=== PATIENT | male | born 1950 | race Caucasian/White ===

== ENCOUNTER 2020-02-07 10:30 | Emergency (ER) | payer MEDICARE, OTHER ==
[2020-02-07] MEDS ORDERED: Sodium Chloride 0.9% 1,000 ML IV SCH ×2 (12:45→14:30)
--- NOTE | 2020-02-07 12:49 | CR ---
CHEST: Portable 02/07/2020 at 12:11 PM CLINICAL HISTORY:Fever, SOB COMPARISON:None FINDINGS: The heart is mildly enlarged. Pulmonary vascularity is normal. No infiltrate effusion or pneumothorax is seen. There are atherosclerotic changes in the aorta. There is some air in the epigastric region which may be a portion of transverse colon or possibly a hiatal hernia. There are no effusions Impression: No acute cardiopulmonary process
[2020-02-07] MEDS ORDERED: Levofloxacin/Dextrose 5%-Water 750 MG in Premix Bag 1 BAG IV ONE (13:28)
--- NOTE | 2020-02-07 13:35 | EDM.PDOC ---
ED HPI GENERAL MEDICAL PROBLEM - General Chief Complaint: Respiratory Problem Stated Complaint: CODID 19? Time Seen by Provider: 02/07/20 11:20 Source of Information: Reports: Patient History Limitations: Reports: No Limitations - History of Present Illness INITIAL COMMENTS - FREE TEXT/NARRATIVE: PT HAD A FEVER LAST NITE. AND WAS SOB. Onset: Gradual, Other ( STARTED IN THE NITE. ) Duration: Hour(s): Location: Reports: Chest, Other (PT HAD PAIN IN THE LEFT CVA AREA, ) Quality: Reports: Sharp Associated Symptoms: Reports: Chest Pain, Cough, Weakness Generalized Pain Score (Numeric/FACES): 6 - Related Data Allergies Allergy/AdvReac Type Severity Reaction Status Date / Time cephalexin [From Keflex] Allergy Other Verified 02/07/20 11:19 Penicillins AdvReac Vomiting Verified 02/07/20 11:19 Home Meds: Home Meds Aspirin 162 tab PO BID 02/07/20 [History] Pramipexole [Mirapex] 0 mg PO BEDTIME 02/07/20 [History] Tamsulosin [Tamsulosin 24 Hr] 0.8 mg PO DAILY 02/07/20 [History] Venlafaxine HCl [Venlafaxine ER] 0 mg PO DAILY 02/07/20 [History] atenoloL [Atenolol] 0 mg PO BID 02/07/20 [History] buPROPion HCL [buPROPion HCl ER] 300 mg PO DAILY 02/07/20 [History] Past Medical History HEENT History: Reports: Impaired Vision Cardiovascular History: Reports: Arrhythmia Respiratory History: Reports: Sleep Apnea, Other (See Below) Other Respiratory History: uses cpap Musculoskeletal History: Reports: Fracture Neurological History: Reports: Vertigo Psychiatric History: Reports: Depression - Past Surgical History GI Surgical History: Reports: Cholecystectomy, Colonoscopy, EGD Musculoskeletal Surgical History: Reports: Arthroscopic Knee, Other (See Below) Other Musculoskeletal Surgeries/Procedures:: many sugeries on hand d/t catching it in an auger. Social & Family History - Tobacco Use Smoking Status *Q: Never Smoker - Caffeine Use Caffeine Use: Reports: Coffee, Soda - Recreational Drug Use Recreational Drug Use: No ED ROS GENERAL - Review of Systems Review Of Systems: See Below Constitutional: Reports: Fever, Chills, Other (PT HAS HAD RIGORS AND SHAKING CHILLS FOR 2 NITES PRIOR TO ARRIVAL. ) HEENT: Reports: No Symptoms Respiratory: Reports: Shortness of Breath, Other (PAIN IN THE LEFT CHEST WITH DEEP BREATHING ALSO PAIN IN HER BACK. ) Cardiovascular: Reports: No Symptoms Endocrine: Reports: No Symptoms GI/Abdominal: Reports: No Symptoms Musculoskeletal: Reports: Other (PAIN IN THE RT CHEST. ) Skin: Reports: No Symptoms ED EXAM, GENERAL - Physical Exam Exam: See Below Free Text/Narrative:: PT ARRIVED WITH PAIN IN THE RT CHEST WITH DEEP BREATHING. B Exam Limited By: No Limitations General Appearance: Alert, No Apparent Distress, Anxious Ears: Normal TMs Nose: Normal Inspection Throat/Mouth: Normal Inspection Head: Atraumatic Neck: Normal Inspection Respiratory/Chest: Other (MILD SOB. ) Cardiovascular: Regular Rate, Rhythm GI/Abdominal: Soft, Non-Tender (Male) Exam: Deferred Rectal (Males) Exam: Deferred Back Exam: Normal Inspection Extremities: Normal Inspection Neurological: Alert, Oriented, Normal Cognition Psychiatric: Anxious Course - Vital Signs Last Recorded V/S: Last Vital Signs Temp 36.7 C 02/07/20 15:41 Pulse 69 02/07/20 15:41 Resp 16 02/07/20 13:21 BP 133/46 L 02/07/20 15:41 Pulse Ox 97 02/07/20 15:41 - Orders/Labs/Meds Orders: Active Orders 24 hr Category Date Time Status CULTURE BLOOD [BC] Urgent Lab 02/07/20 13:10 Received CULTURE BLOOD [BC] Urgent Lab 02/07/20 13:18 Received CULTURE URINE [RM] Stat Lab 02/07/20 12:19 Received Blood Culture x2 Reflex Set [OM.PC] Urgent Oth 02/07/20 12:46 Ordered Labs: Laboratory Tests 02/07/20 02/07/20 02/07/20 Range/Units 11:36 11:50 11:50 WBC 15.5 H (4.5-11.0) K/uL RBC 4.63 (4.30-5.90) M/uL Hgb 13.9 (12.0-15.0) g/dL Hct 42.0 (40.0-54.0) % MCV 91 (80-98) fL MCH 30 (27-31) pg MCHC 33 (32-36) % Plt Count 228 (150-400) K/uL Neut % (Auto) 80 H (36-66) % Lymph % (Auto) 7 L (24-44) % [place] % (Auto) 13 H (2-6) % Eos % (Auto) 0 L (2-4) % Baso % (Auto) 0 (0-1) % Sodium 136 L (140-148) mmol/L Potassium 4.4 (3.6-5.2) mmol/L Chloride 101 (100-108) mmol/L Carbon Dioxide 27 (21-32) mmol/L Anion Gap 12.4 (5.0-14.0) mmol/L BUN 13 (7-18) mg/dL Creatinine 1.2 (0.8-1.3) mg/dL Est Cr Clr Drug Dosing 59.99 mL/min Estimated GFR (MDRD) > 60 (>60) Glucose 121 H (74-106) mg/dL Lactic Acid (0.4-2.0) mmol/L Calcium 8.9 (8.5-10.1) mg/dL Total Bilirubin 0.9 (0.2-1.0) mg/dL AST 25 (15-37) U/L ALT 47 (12-78) U/L Alkaline Phosphatase 92 (46-116) U/L Total Protein 7.4 (6.4-8.2) g/dL Albumin 3.1 L (3.4-5.0) g/dL Globulin 4.3 H (2.3-3.5) g/dL Albumin/Globulin Ratio 0.7 L (1.2-2.2) Urine Color Yellow (YELLOW) Urine Appearance Turbid A (CLEAR) Urine pH 6.0 (5.0-8.0) Ur Specific [place] 1.025 (1.008-1.030) Urine Protein 30 H (NEGATIVE) mg/dL Urine Glucose (UA) Negative (NEGATIVE) mg/dL Urine Ketones Negative (NEGATIVE) mg/dL Urine Occult Blood Large H (NEGATIVE) Urine Nitrite Negative (NEGATIVE) Urine Bilirubin Negative (NEGATIVE) Urine Urobilinogen 0.2 (0.2-1.0) EU/dL Ur Leukocyte Esterase Small H (NEGATIVE) Urine RBC 20-30 H (0-5) Urine WBC 40-50 H (0-5) Ur Epithelial Cells Not seen Amorphous Sediment Not seen Urine Bacteria Many Urine Mucus Not seen SARS-CoV-2 RNA (LYRIC) (NEGATIVE) 02/07/20 02/07/20 Range/Units 12:44 13:35 WBC (4.5-11.0) K/uL RBC (4.30-5.90) M/uL Hgb (12.0-15.0) g/dL Hct (40.0-54.0) % MCV (80-98) fL MCH (27-31) pg MCHC (32-36) % Plt Count (150-400) K/uL Neut % (Auto) (36-66) % Lymph % (Auto) (24-44) % [place] % (Auto) (2-6) % Eos % (Auto) (2-4) % Baso % (Auto) (0-1) % Sodium (140-148) mmol/L Potassium (3.6-5.2) mmol/L Chloride (100-108) mmol/L Carbon Dioxide (21-32) mmol/L Anion Gap (5.0-14.0) mmol/L BUN (7-18) mg/dL Creatinine (0.8-1.3) mg/dL Est Cr Clr Drug Dosing mL/min Estimated GFR (MDRD) (>60) Glucose (74-106) mg/dL Lactic Acid 1.3 (0.4-2.0) mmol/L Calcium (8.5-10.1) mg/dL Total Bilirubin (0.2-1.0) mg/dL AST (15-37) U/L ALT (12-78) U/L Alkaline Phosphatase (46-116) U/L Total Protein (6.4-8.2) g/dL Albumin (3.4-5.0) g/dL Globulin (2.3-3.5) g/dL Albumin/Globulin Ratio (1.2-2.2) Urine Color (YELLOW) Urine Appearance (CLEAR) Urine pH (5.0-8.0) Ur Specific [place] (1.008-1.030) Urine Protein (NEGATIVE) mg/dL Urine Glucose (UA) (NEGATIVE) mg/dL Urine Ketones (NEGATIVE) mg/dL Urine Occult Blood (NEGATIVE) Urine Nitrite (NEGATIVE) Urine Bilirubin (NEGATIVE) Urine Urobilinogen (0.2-1.0) EU/dL Ur Leukocyte Esterase (NEGATIVE) Urine RBC (0-5) Urine WBC (0-5) Ur Epithelial Cells Amorphous Sediment Urine Bacteria Urine Mucus SARS-CoV-2 RNA (LYRIC) Negative (NEGATIVE) Meds: Medications Discontinued Medications Generic Name Dose Route Start Last Admin Trade Name Macy PRN Reason Stop Dose Admin Sodium Chloride 1,000 mls @ 999 mls/hr 02/07/20 12:45 02/07/20 13:19 Normal Saline IV 999 mls/hr ASDIRECTED BRENDEN Administration Levofloxacin/Dextrose 750 mg/ 150 mls @ 100 mls/hr 02/07/20 13:28 02/07/20 14:17 Premix IV 02/07/20 14:57 100 mls/hr ONETIME ONE Administration Sodium Chloride 1,000 mls @ 999 mls/hr 02/07/20 14:30 02/07/20 15:41 Normal Saline IV 999 mls/hr ASDIRECTED BRENDEN Administration - Re-Assessments/Exams Free Text/Narrative Re-Assessment/Exam: PT HAS A URINE WHICH LOOKS VERY INFECTED. tHIS WAS CULTURED AND BLOOD CULTURES WERE DRAWN. lACTIC ACID IS NORMAL.pT WAS COVID NEG. hE HAS A WBC OF 15,000. PT WAS GIVEN LEVOQUIN 750 MG IV. 02/07/20 14:33 02/07/20 15:01 PT IS FEELING BETTER . hIS TEMP IS STAYING DOWN. hE IS HUNGREY AND IS WANTING TO EAT. Departure - Departure Time of Disposition: 14:00 Disposition: Home, Self-Care 01 Condition: Fair Clinical Impression: Dehydration, Kidney infection - Discharge Information Instructions: Pyelonephritis, Adult, [id number], Dehydration, Adult, [id number] Referrals: PCP,None [Primary Care Provider] - Forms: ED Department Discharge Care Plan Goals: APPT WITH USUAL pROVIDER IN 1 WEEK . RTC IF NOT IMPROVING. CIPRO 500MG BID TYLENOL AND MOTRIN FOR ANY FEVER, PUSH FLUIDS. Sepsis Event Note (ED) - Evaluation Sepsis Screening Result: No Definite Risk - My Orders Last 24 Hours: My Active Orders 02/07/20 12:19 CULTURE URINE [RM] Stat 02/07/20 12:46 Blood Culture x2 Reflex Set [OM.PC] Urgent 02/07/20 13:10 CULTURE BLOOD [BC] Urgent 02/07/20 13:18 CULTURE BLOOD [BC] Urgent - Assessment/Plan Last 24 Hours: My Active Orders 02/07/20 12:19 CULTURE URINE [RM] Stat 02/07/20 12:46 Blood Culture x2 Reflex Set [OM.PC] Urgent 02/07/20 13:10 CULTURE BLOOD [BC] Urgent 02/07/20 13:18 CULTURE BLOOD [BC] Urgent
== END 2020-02-07 16:52 | disposition home or self-care (01) ==
LOC: JP.ED 10:30
DX: N15.9 Renal tubulo-interstitial disease, unspecified (principal); E86.0 Dehydration; F32.9 Major depressive disorder, single episode, unspecified; Z88.1 Allergy status to other antibiotic agents; Z88.0 Allergy status to penicillin; Z79.82 Long term (current) use of aspirin; Z79.899 Other long term (current) drug therapy; Z20.828 Contact with and (suspected) exposure to other viral communicable diseases
CPT/HCPCS: 36415; 71045; 80053; 81001; 83605; 85025; 87040; 87086; 87088; 87186; 87635; 96361; 96365; 99285; J1956; J7030; U0002

== ENCOUNTER 2020-02-08 17:24 | Inpatient (IN) | payer OTHER, MEDICARE ==
[2020-02-08] MEDS ORDERED: Sodium Chloride 0.9% 1,000 ML IV SCH (17:45)
--- NOTE | 2020-02-08 18:04 | EDM.PDOC ---
ED HPI GENERAL MEDICAL PROBLEM - General Chief Complaint: General Stated Complaint: MEDICAL Time Seen by Provider: 02/08/20 18:00 Source of Information: Reports: Patient History Limitations: Reports: No Limitations - History of Present Illness INITIAL COMMENTS - FREE TEXT/NARRATIVE: pt arrived with pain in the rt abdoman. He had cva pain yesterday. He was found to have infected urine yesterday. He did receive levoquin yesterday iv and he spiked a temp to 105 this afternoon. Onset: Sudden Location: Reports: Abdomen, Other (pain in rt lower abdoman) Associated Symptoms: Reports: Diaphoresis, Fever/Chills - Related Data Allergies Allergy/AdvReac Type Severity Reaction Status Date / Time cephalexin [From Keflex] Allergy Other Verified 02/07/20 11:19 Penicillins AdvReac Vomiting Verified 02/07/20 11:19 Home Meds: Home Meds Aspirin 162 tab PO BID 02/07/20 [History] Pramipexole [Mirapex] 0.125 mg PO BEDTIME 02/07/20 [History] Tamsulosin [Tamsulosin 24 Hr] 0.8 mg PO DAILY 02/07/20 [History] Venlafaxine HCl [Venlafaxine ER] 150 mg PO DAILY 02/07/20 [History] atenoloL [Atenolol] 25 mg PO BID 02/07/20 [History] buPROPion HCL [buPROPion HCl ER] 300 mg PO DAILY 02/07/20 [History] Ciprofloxacin [Ciprofloxacin HCl] 500 mg PO BID 02/08/20 [History] Past Medical History HEENT History: Reports: Impaired Vision Cardiovascular History: Reports: Arrhythmia Respiratory History: Reports: Sleep Apnea, Other (See Below) Other Respiratory History: uses cpap Musculoskeletal History: Reports: Fracture Neurological History: Reports: Vertigo Psychiatric History: Reports: Depression - Past Surgical History GI Surgical History: Reports: Cholecystectomy, Colonoscopy, EGD Musculoskeletal Surgical History: Reports: Arthroscopic Knee, Other (See Below) Other Musculoskeletal Surgeries/Procedures:: many sugeries on hand d/t catching it in an auger. Social & Family History - Tobacco Use Tobacco Use Status *Q: Never Tobacco User - Caffeine Use Caffeine Use: Reports: Coffee, Soda - Recreational Drug Use Recreational Drug Use: No ED ROS GENERAL - Review of Systems Review Of Systems: See Below Constitutional: Reports: Fever, Chills, Weakness HEENT: Reports: No Symptoms Respiratory: Reports: No Symptoms Cardiovascular: Reports: No Symptoms Endocrine: Reports: No Symptoms GI/Abdominal: Reports: Abdominal Pain, Other ( rt sided pain. ) : Reports: No Symptoms Musculoskeletal: Reports: No Symptoms Skin: Reports: No Symptoms Neurological: Reports: No Symptoms Psychiatric: Reports: Anxiety ED EXAM, GENERAL - Physical Exam Exam: See Below Free Text/Narrative:: pt arrivedwith pain in the rt lower abdoman. Pt has urine which looks better. His wbc was better. Exam Limited By: No Limitations General Appearance: Alert, Anxious, Moderate Distress Ears: Normal TMs Nose: Normal Inspection Throat/Mouth: Normal Inspection Head: Atraumatic Neck: Normal Inspection Respiratory/Chest: No Respiratory Distress Cardiovascular: Regular Rate, Rhythm GI/Abdominal: Soft, Other ( tender in the rt lower abdoman. He does not have blood in the urine. ) (Male) Exam: Deferred Rectal (Males) Exam: Deferred Back Exam: Normal Inspection Extremities: Normal Inspection Neurological: Alert, Oriented, Normal Cognition Psychiatric: Anxious Course - Vital Signs Last Recorded V/S: Last Vital Signs Temp 37.4 C 02/08/20 17:50 Pulse 66 02/08/20 17:50 Resp 16 02/08/20 17:50 BP 143/58 H 02/08/20 17:50 Pulse Ox 96 02/08/20 17:50 - Orders/Labs/Meds Orders: Active Orders 24 hr Category Date Time Status Abdomen Pelvis wo Cont [CT] Stat Exams 02/08/20 18:13 Ordered CULTURE BLOOD [BC] Urgent Lab 02/08/20 18:10 Received CULTURE BLOOD [BC] Urgent Lab 02/08/20 18:20 Received LACTIC ACID [CHEM] Stat Lab 02/08/20 17:40 Ordered Sodium Chloride 0.9% [Normal Saline] 1,000 ml Med 02/08/20 17:45 Active IV ASDIRECTED Blood Culture x2 Reflex Set [OM.PC] Urgent Oth 02/08/20 17:58 Ordered Medication Orders Sodium Chloride (Normal Saline) 1,000 mls @ 999 mls/hr IV ASDIRECTED BRENDEN Last Admin: 02/08/20 18:00 Dose: 999 mls/hr Documented by: [id number] Labs: Laboratory Tests 02/08/20 02/08/20 02/08/20 Range/Units 17:40 17:44 17:58 WBC 5.8 (4.5-11.0) K/uL RBC 4.41 (4.30-5.90) M/uL Hgb 12.8 (12.0-15.0) g/dL Hct 39.5 L (40.0-54.0) % MCV 90 (80-98) fL MCH 29 (27-31) pg MCHC 32 (32-36) % Plt Count 215 (150-400) K/uL Neut % (Auto) 79 H (36-66) % Lymph % (Auto) 8 L (24-44) % [place] % (Auto) 12 H (2-6) % Eos % (Auto) 1 L (2-4) % Baso % (Auto) 0 (0-1) % Sodium 134 L (140-148) mmol/L Potassium 4.1 (3.6-5.2) mmol/L Chloride 102 (100-108) mmol/L Carbon Dioxide 20 L (21-32) mmol/L Anion Gap 16.1 H (5.0-14.0) mmol/L BUN 12 (7-18) mg/dL Creatinine 1.1 (0.8-1.3) mg/dL Est Cr Clr Drug Dosing 65.44 mL/min Estimated GFR (MDRD) > 60 (>60) Glucose 106 (74-106) mg/dL Calcium 8.8 (8.5-10.1) mg/dL Total Bilirubin 0.4 D (0.2-1.0) mg/dL AST 38 H (15-37) U/L ALT 59 (12-78) U/L Alkaline Phosphatase 105 (46-116) U/L Total Protein 7.0 (6.4-8.2) g/dL Albumin 2.8 L (3.4-5.0) g/dL Globulin 4.2 H (2.3-3.5) g/dL Albumin/Globulin Ratio 0.7 L (1.2-2.2) Urine Color Yellow (YELLOW) Urine Appearance Slightly cloudy A (CLEAR) Urine pH 6.0 (5.0-8.0) Ur Specific [place] 1.025 (1.008-1.030) Urine Protein Negative (NEGATIVE) mg/dL Urine Glucose (UA) Negative (NEGATIVE) mg/dL Urine Ketones Negative (NEGATIVE) mg/dL Urine Occult Blood Small H (NEGATIVE) Urine Nitrite Negative (NEGATIVE) Urine Bilirubin Negative (NEGATIVE) Urine Urobilinogen 0.2 (0.2-1.0) EU/dL Ur Leukocyte Esterase Small H (NEGATIVE) Urine RBC 0-5 (0-5) Urine WBC 20-30 H (0-5) Ur Epithelial Cells Few Amorphous Sediment Not seen Urine Bacteria Moderate Urine Mucus Moderate Meds: Medications Generic Name Dose Route Start Last Admin Trade Name Freq PRN Reason Stop Dose Admin Sodium Chloride 1,000 mls @ 999 mls/hr 02/08/20 17:45 02/08/20 18:00 Normal Saline IV 999 mls/hr ASDIRECTED [facility] Administration - Re-Assessments/Exams Free Text/Narrative Re-Assessment/Exam: 02/08/20 18:43 pt has a Ua which looks better. He had a temp of 105. earlier this afternoon. Pt had repeat labs drawn, 02/08/20 18:45 Departure - Departure Time of Disposition: 18:46 Disposition: DC/Tfer to Acute Hospital 02 Condition: Fair Clinical Impression: Kidney infection, Sepsis - Discharge Information Referrals: Naren Prabhakar [employer]IOR MECHANIC [Primary Care Provider] - Forms: ED Department Discharge Care Plan Goals: admit to Dr Giordano. Sepsis Event Note (ED) - Evaluation Sepsis Screening Result: No Definite Risk - Focused Exam Vital Signs: Vital Signs Temp Pulse Resp BP Pulse Ox 02/08/20 17:50 37.4 C 66 16 143/58 H 96 02/08/20 17:45 37.4 C 66 16 143/58 H 96 - My Orders Last 24 Hours: My Active Orders 02/08/20 17:40 LACTIC ACID [CHEM] Stat 02/08/20 17:45 Sodium Chloride 0.9% [Normal Saline] 1,000 ml IV ASDIRECTED 02/08/20 17:58 Blood Culture x2 Reflex Set [OM.PC] Urgent 02/08/20 18:10 CULTURE BLOOD [BC] Urgent 02/08/20 18:13 Abdomen Pelvis wo Cont [CT] Stat 02/08/20 18:20 CULTURE BLOOD [BC] Urgent - Assessment/Plan Last 24 Hours: My Active Orders 02/08/20 17:40 LACTIC ACID [CHEM] Stat 02/08/20 17:45 Sodium Chloride 0.9% [Normal Saline] 1,000 ml IV ASDIRECTED 02/08/20 17:58 Blood Culture x2 Reflex Set [OM.PC] Urgent 02/08/20 18:10 CULTURE BLOOD [BC] Urgent 02/08/20 18:13 Abdomen Pelvis wo Cont [CT] Stat 02/08/20 18:20 CULTURE BLOOD [BC] Urgent
[2020-02-08] MEDS ORDERED: Acetaminophen/oxyCODONE 325-5 MG Tab PO PRN (19:14)
[2020-02-08] MEDS ORDERED: Ondansetron 4 MG Tab.DIS PO PRN (19:14)
--- NOTE | 2020-02-08 19:27 | PCM.HP.2 ---
H&P History of Present Illness - General Date of Service: 02/08/20 Admit Problem/Dx: Admission Diagnosis/Problem Admission Diagnosis/Problem Sepsis Source of Information: Patient, Family History Limitations: Reports: No Limitations - History of Present Illness Initial Comments - Free Text/Narative: Mr. Bennie Harris is a 70 yo M admitted to [facility] on 13 O 2019 for management of urosepsis. The patient was seen in the ED on 07 february 2020 for fever, chills that at that time was suspected to be d/t COVID 19 infection. The patient was subsequently ruled out for COVID 19 but was started in 500 mg po cipro bid for an identified UTI. Despite appropriate therapy (patient allergic to PCN and Cephalosporins), the patient continued to deteriorate with fever as high as 105 F per history and ED reports. The patient also noted moderate pain in the R flank as well as pain radiating into the RLQ. this has been noted to be coming on in waves. The patient was taken to CT and the report of this is pending at time of writing. The patient denies any other symptoms other than malaise and fatigue and per his has not gotten out of bed very much in the past few days. Admission is requested for management of possible sepsis due to urinary sources. BCx and UCx from 06 February are pending at this time. - Related Data Allergies/Adverse Reactions: Allergies Allergy/AdvReac Type Severity Reaction Status Date / Time cephalexin [From Keflex] Allergy Other Verified 02/07/20 11:19 Penicillins AdvReac Vomiting Verified 02/07/20 11:19 Home Medications: Home Meds Aspirin 162 tab PO BID 02/07/20 [History] Pramipexole [Mirapex] 0.125 mg PO BEDTIME 02/07/20 [History] Tamsulosin [Tamsulosin 24 Hr] 0.8 mg PO DAILY 02/07/20 [History] Venlafaxine HCl [Venlafaxine ER] 150 mg PO DAILY 02/07/20 [History] atenoloL [Atenolol] 25 mg PO BID 02/07/20 [History] buPROPion HCL [buPROPion HCl ER] 300 mg PO DAILY 02/07/20 [History] Ciprofloxacin [Ciprofloxacin HCl] 500 mg PO BID 02/08/20 [History] Past Medical History HEENT History: Reports: Impaired Vision Cardiovascular History: Reports: Arrhythmia Respiratory History: Reports: Sleep Apnea, Other (See Below) Other Respiratory History: uses cpap Musculoskeletal History: Reports: Fracture Neurological History: Reports: Vertigo Psychiatric History: Reports: Depression - Past Surgical History GI Surgical History: Reports: Cholecystectomy, Colonoscopy, EGD Musculoskeletal Surgical History: Reports: Arthroscopic Knee, Other (See Below) Other Musculoskeletal Surgeries/Procedures:: many sugeries on hand d/t catching it in an auger. Social & Family History - Tobacco Use Tobacco Use Status *Q: Never Tobacco User - Caffeine Use Caffeine Use: Reports: Coffee, Soda - Recreational Drug Use Recreational Drug Use: No H&P Review of Systems - Review of Systems: Review Of Systems: Comprehensive ROS is negative, except as noted in HPI. Exam - Exam Exam: See Below - Vital Signs Vital Signs: Last Vital Signs Temp 99.4 F 02/08/20 17:50 Pulse 66 02/08/20 17:50 Resp 16 02/08/20 17:50 BP 143/58 H 02/08/20 17:50 Pulse Ox 96 02/08/20 17:50 Weight: 267 lb 13.786 oz - Exam Quality Assessment: No: Supplemental Oxygen General: Alert, Oriented, Cooperative, Mild Distress HEENT: PERRLA, Conjunctiva Clear, EOMI, Hearing Intact, Mucosa Moist & [place], Posterior Pharynx Clear, Pupils Equal, Pupils Reactive Neck: Supple, Trachea Midline Lungs: Clear to Auscultation, Normal Respiratory Effort Cardiovascular: Regular Rate, Regular Rhythm GI/Abdominal Exam: Normal Bowel Sounds, Soft, Non-Tender, No Organomegaly, No Distention, No Abnormal Bruit, No Mass Back Exam: Normal Inspection, Full Range of Motion, CVA Tenderness (R) Extremities: Normal Inspection, Normal Range of Motion, Non-Tender, No Pedal Edema, Normal Capillary Refill Peripheral Pulses: 4+: Posterior Tibial (L), Posterior Tibial (R), Dorsalis Pedis (L), Dorsalis Pedis (R) Skin: Warm, Dry, Intact Neurological: Cranial Nerves Intact, Reflexes Equal Bilateral Neuro Extensive - Mental Status: Alert, Oriented x3, Normal Mood/Affect, Normal Cognition, Memory Intact Neuro Extensive - Motor, Sensory, Reflexes: CN II-XII Intact, Normal Gait, Normal Reflexes DTR: 2+: Patella (L), Patella (R) Psychiatric: Alert, Normal Affect, Normal Mood - Patient Data Lab Results Last 24 hrs: Laboratory Results - last 24 hr 02/08/20 02/08/20 02/08/20 Range/Units 17:40 17:40 17:44 WBC 5.8 (4.5-11.0) K/uL RBC 4.41 (4.30-5.90) M/uL Hgb 12.8 (12.0-15.0) g/dL Hct 39.5 L (40.0-54.0) % MCV 90 (80-98) fL MCH 29 (27-31) pg MCHC 32 (32-36) % Plt Count 215 (150-400) K/uL Neut % (Auto) 79 H (36-66) % Lymph % (Auto) 8 L (24-44) % [place] % (Auto) 12 H (2-6) % Eos % (Auto) 1 L (2-4) % Baso % (Auto) 0 (0-1) % Sodium (140-148) mmol/L Potassium (3.6-5.2) mmol/L Chloride (100-108) mmol/L Carbon Dioxide (21-32) mmol/L Anion Gap (5.0-14.0) mmol/L BUN (7-18) mg/dL Creatinine (0.8-1.3) mg/dL Est Cr Clr Drug Dosing mL/min Estimated GFR (MDRD) (>60) Glucose (74-106) mg/dL Lactic Acid 1.4 (0.4-2.0) mmol/L Calcium (8.5-10.1) mg/dL Total Bilirubin (0.2-1.0) mg/dL AST (15-37) U/L ALT (12-78) U/L Alkaline Phosphatase (46-116) U/L Total Protein (6.4-8.2) g/dL Albumin (3.4-5.0) g/dL Globulin (2.3-3.5) g/dL Albumin/Globulin Ratio (1.2-2.2) Urine Color Yellow (YELLOW) Urine Appearance Slightly cloudy A (CLEAR) Urine pH 6.0 (5.0-8.0) Ur Specific [place] 1.025 (1.008-1.030) Urine Protein Negative (NEGATIVE) mg/dL Urine Glucose (UA) Negative (NEGATIVE) mg/dL Urine Ketones Negative (NEGATIVE) mg/dL Urine Occult Blood Small H (NEGATIVE) Urine Nitrite Negative (NEGATIVE) Urine Bilirubin Negative (NEGATIVE) Urine Urobilinogen 0.2 (0.2-1.0) EU/dL Ur Leukocyte Esterase Small H (NEGATIVE) Urine RBC 0-5 (0-5) Urine WBC 20-30 H (0-5) Ur Epithelial Cells Few Amorphous Sediment Not seen Urine Bacteria Moderate Urine Mucus Moderate / Range/Units 17:58 WBC (4.5-11.0) K/uL RBC (4.30-5.90) M/uL Hgb (12.0-15.0) g/dL Hct (40.0-54.0) % MCV (80-98) fL MCH (27-31) pg MCHC (32-36) % Plt Count (150-400) K/uL Neut % (Auto) (36-66) % Lymph % (Auto) (24-44) % [place] % (Auto) (2-6) % Eos % (Auto) (2-4) % Baso % (Auto) (0-1) % Sodium 134 L (140-148) mmol/L Potassium 4.1 (3.6-5.2) mmol/L Chloride 102 (100-108) mmol/L Carbon Dioxide 20 L (21-32) mmol/L Anion Gap 16.1 H (5.0-14.0) mmol/L BUN 12 (7-18) mg/dL Creatinine 1.1 (0.8-1.3) mg/dL Est Cr Clr Drug Dosing 65.44 mL/min Estimated GFR (MDRD) > 60 (>60) Glucose 106 (74-106) mg/dL Lactic Acid (0.4-2.0) mmol/L Calcium 8.8 (8.5-10.1) mg/dL Total Bilirubin 0.4 D (0.2-1.0) mg/dL AST 38 H (15-37) U/L ALT 59 (12-78) U/L Alkaline Phosphatase 105 (46-116) U/L Total Protein 7.0 (6.4-8.2) g/dL Albumin 2.8 L (3.4-5.0) g/dL Globulin 4.2 H (2.3-3.5) g/dL Albumin/Globulin Ratio 0.7 L (1.2-2.2) Urine Color (YELLOW) Urine Appearance (CLEAR) Urine pH (5.0-8.0) Ur Specific [place] (1.008-1.030) Urine Protein (NEGATIVE) mg/dL Urine Glucose (UA) (NEGATIVE) mg/dL Urine Ketones (NEGATIVE) mg/dL Urine Occult Blood (NEGATIVE) Urine Nitrite (NEGATIVE) Urine Bilirubin (NEGATIVE) Urine Urobilinogen (0.2-1.0) EU/dL Ur Leukocyte Esterase (NEGATIVE) Urine RBC (0-5) Urine WBC (0-5) Ur Epithelial Cells Amorphous Sediment Urine Bacteria Urine Mucus Result Diagrams: 02/08/20 17:40 02/08/20 17:58 Sepsis Event Note - Evaluation Sepsis Screening Result: No Definite Risk - Focused Exam Vital Signs: Vital Signs Temp Pulse Resp BP Pulse Ox 02/08/20 17:50 99.4 F 66 16 143/58 H 96 02/08/20 17:45 99.4 F 66 16 143/58 H 96 Problem List Initiated/Reviewed/Updated: Yes Orders Last 24hrs: Active Orders 24 hr Category Date Time Status Patient Status [ADT] Routine ADT 02/08/20 19:14 Ordered Ambulate [RC] QID Care 02/08/20 19:14 Ordered Notify Provider Vital Signs [RC] ASDIRECTED Care 02/08/20 19:16 Ordered Oxygen Therapy [RC] PRN Care 02/08/20 19:14 Ordered Pulse Oximetry [RC] PRN Care 02/08/20 19:16 Ordered Up to Chair [RC] QID Care 02/08/20 19:14 Ordered VTE/DVT Education [RC] Per Unit Routine Care 02/08/20 19:14 Ordered Vital Signs [RC] Q4H Care 02/08/20 19:14 Ordered Regular Diet [DIET] Diet 02/08/20 Dinner Ordered Abdomen Pelvis wo Cont [CT] Stat Exams 02/08/20 18:13 Taken CBC WITH AUTO DIFF [HEME] DAILY Lab 02/09/20 05:00 Ordered CBC WITH AUTO DIFF [HEME] DAILY Lab 02/10/20 05:00 Ordered CBC WITH AUTO DIFF [HEME] DAILY Lab 02/11/20 05:00 Ordered CBC WITH AUTO DIFF [HEME] DAILY Lab 02/12/20 05:00 Ordered COMPREHENSIVE METABOLIC PN,CMP [CHEM] DAILY Lab 02/09/20 05:00 Ordered COMPREHENSIVE METABOLIC PN,CMP [CHEM] DAILY Lab 02/10/20 05:00 Ordered COMPREHENSIVE METABOLIC PN,CMP [CHEM] DAILY Lab 02/11/20 05:00 Ordered COMPREHENSIVE METABOLIC PN,CMP [CHEM] DAILY Lab 02/12/20 05:00 Ordered CULTURE BLOOD [BC] Urgent Lab 02/08/20 18:10 Received CULTURE BLOOD [BC] Urgent Lab 02/08/20 18:20 Received Acetaminophen [TylenoL] Med 02/08/20 19:14 Ordered 650 mg PO Q4H PRN Acetaminophen/oxyCODONE [Percocet 325-5 MG] Med 02/08/20 19:14 Ordered 1 tab PO Q4H PRN Aspirin Med 02/08/20 21:00 Ordered 13,122 mg PO BID Enoxaparin [Lovenox] Med 02/08/20 19:30 Ordered 40 mg SUBCUT DAILY Levofloxacin/Dextrose 5%-Water [Levaquin in D5W 750 MG/ Med 02/08/20 19:30 Ord ered 150 ML] 750 mg Premix Bag 1 bag IV Q24H Ondansetron [Zofran ODT] Med 02/08/20 19:14 Ordered 4 mg PO Q6H PRN Pramipexole [Mirapex] Med 02/08/20 21:00 Ordered 0.125 mg PO BEDTIME Sodium Chloride 0.9% @ 125 MLS/HR (1000ml) Med 02/08/20 19:15 Ordered Sodium Chloride 0.9% [Normal Saline] 1,000 ml IV ASDIRECTED Tamsulosin [Flomax] Med 02/09/20 09:00 Ordered 0.8 mg PO DAILY Venlafaxine HCl [Venlafaxine ER] Med 02/09/20 09:00 Ordered 150 mg PO DAILY atenoloL [Tenormin] Med 02/08/20 21:00 Ordered 25 mg PO BID buPROPion HCL [buPROPion HCl ER] Med 02/09/20 09:00 Ordered 300 mg PO DAILY Blood Culture x2 Reflex Set [OM.PC] Urgent Oth 02/08/20 17:58 Ordered Resuscitation Status Routine Resus Stat 02/08/20 19:14 Ordered Medication Orders Acetaminophen (Tylenol) 650 mg PO Q4H PRN PRN Reason: Pain (Mild 1-3)/fever Aspirin (Aspirin) 13,122 mg PO BID [facility] Atenolol (Tenormin) 25 mg PO BID [facility] Enoxaparin Sodium (Lovenox) 40 mg SUBCUT DAILY [facility] Sodium Chloride (Normal Saline) 1,000 mls @ 125 mls/hr IV ASDIRECTED [facility] Levofloxacin/Dextrose 750 mg/ (Premix) 150 mls @ 100 mls/hr IV Q24H [facility] Stop: 02/15/20 19:31 Non-Formulary Medication (Bupropion Hcl [Bupropion Hcl Er]) 300 mg PO DAILY [facility] Non-Formulary Medication (Pramipexole [Mirapex]) 0.125 mg PO BEDTIME [facility] Non-Formulary Medication (Venlafaxine Hcl [Venlafaxine Er]) 150 mg PO DAILY [facility] Ondansetron HCl (Zofran Odt) 4 mg PO Q6H PRN PRN Reason: Nausea able to take PO Oxycodone/Acetaminophen (Percocet 325-5 Mg) 1 tab PO Q4H PRN PRN Reason: Pain (moderate 4-6) Tamsulosin HCl (Flomax) 0.8 mg PO DAILY [facility] Assessment/Plan Comment:: Assessment and Plan: 1. HEENT No active issues other than mild rhinitis - Observation only 2. Cardiopulmonary No active issues at this time 3. Gastrointestinal No active issues at this time 4. ID/Genitourinary Patient does appear to have fever but no hemodynamic instability or other SIRS criteria of sepsis. WBC is unremarkable. CT is pending. UCX, BCx are pending. - Patient not able to tolerate rocephin or PCN - Start levaquin 750 mg IV q 24 hours - Await BCx, UCx and sensitivities - IV fluids 0.9% NS at 125 mL/hr - Med Surg Monitoring for now - No indication for pressor support at this time. 5. F/E/N No issues 6. Renal No signs of renal insufficiency at this time. - Daily labs Disposition: Anticipate D/C to home in 2-3 days Guerrero Giordano M.D. 08 February 2020 - Mortality Measure Prognosis:: Good
[2020-02-08] MEDS ORDERED: Enoxaparin 40 MG/0.4 ML Syringe SUBCUT SCH (19:30)
--- NOTE | 2020-02-08 19:42 | CRLCT ---
INDICATION: Right-sided flank pain TECHNIQUE: Axial images were obtained from the diaphragm to the pubic symphysis. Reformats were obtained in the coronal and sagittal plane. IV Contrast: None Oral Contrast: None COMPARISON: None. FINDINGS: Lower chest: Discoid atelectasis left lower lobe. Liver: Unremarkable. Normal in size and attenuation. No masses. Gallbladder and bile ducts: Status post cholecystectomy. Spleen: Unremarkable. Normal in size without mass. Pancreas: Mild pancreatic atrophy. Adrenal glands: Unremarkable. No nodules. Kidneys: Exophytic 8 millimeter cyst upper pole left kidney. No nephrolithiasis. No hydronephrosis. Vasculature: Atherosclerosis without abdominal aortic aneurysm. GI tract: The stomach is unremarkable. No dilated loops of large or small intestine. Colonic diverticulosis. Pelvis: Fat containing right indirect inguinal hernia. Mild fat stranding along the margin of the bladder as well as the superior margin of the prostate. Prominent left posterior bladder diverticulum. Bones: Unremarkable for age. IMPRESSION: 1. Mild fat stranding surrounding the bladder as well as the superior margin of the prostate which can be seen in a cystitis/prostatitis. Left lateral bladder diverticulum. 2. No nephrolithiasis or hydronephrosis. 3. Colonic diverticulosis. 4. Fat containing right indirect inguinal hernia. Please note that all CT scans at this facility use dose modulation, iterative reconstruction, and/or weight-based dosing when appropriate to reduce radiation dose to as low as reasonably achievable. Dictated by Delvin May MD @ Feb 08 2020 7:28PM Signed by Dr. Delvin May @ Feb 08 2020 7:42PM
[2020-02-08] MEDS: Levofloxacin/Dextrose 5%-Water 750 MG in Premix Bag 1 BAG IV SCH (19:56)
[2020-02-08] MEDS: Sodium Chloride 0.9% 1,000 ML IV SCH (20:03)
[2020-02-08] MEDS: Acetaminophen 325 MG Tab PO PRN (20:15)
[2020-02-08] MEDS: Atenolol 25 MG Tab PO SCH (20:16)
[2020-02-08] MEDS ORDERED: Aspirin 81 MG Tab.Chew PO SCH ×2 (21:00→21:30)
[2020-02-08] MEDS: Pramipexole 0.25 MG Tab PO SCH (21:31)
[2020-02-08] MEDS: Aspirin 81 MG Tab.EC PO SCH (21:32)
[2020-02-09] MEDS: Acetaminophen 325 MG Tab PO PRN ×5 (01:12→21:10)
[2020-02-09] MEDS: Ibuprofen 600 MG Tab PO PRN ×3 (03:02→21:09)
[2020-02-09] MEDS: Sodium Chloride 0.9% 1,000 ML IV SCH ×3 (03:05→18:49)
[2020-02-09] MEDS: Atenolol 25 MG Tab PO SCH ×2 (09:38→21:08)
[2020-02-09] MEDS: Tamsulosin 0.4 MG Cap.ER PO SCH (09:38)
[2020-02-09] MEDS: Aspirin 81 MG Tab.EC PO SCH ×2 (09:39→21:09)
[2020-02-09] MEDS: buPROPion 150 MG Tab.ER PO SCH (09:39)
[2020-02-09] MEDS: Venlafaxine 75 MG Cap.ER PO SCH (09:39)
--- NOTE | 2020-02-09 11:00 | PCM.PN ---
- General Info Date of Service: 02/09/20 Admission Dx/Problem (Free Text): 1. Acute cystitis 2. Sepsis, due to urinary source Subjective Update: Patient notes that his pain is improved. Fevers are also slightly better. Had a couple of low pressures overnight that did respond to fluid resuscitation. Afebrile x 6-8 hours. Tolerating atbx well but has h/o atbx induced hepatitis. No other issues noted this AM. Functional Status: Reports: Pain Controlled, Tolerating Diet - Review of Systems General: Reports: Fever, Weakness, Fatigue Pulmonary: Reports: No Symptoms Cardiovascular: Reports: Other (Hypotension) Gastrointestinal: Reports: No Symptoms Musculoskeletal: Reports: No Symptoms Skin: Reports: No Symptoms Neurological: Reports: No Symptoms Psychiatric: Reports: No Symptoms - Patient Data Vitals - Most Recent: Last Vital Signs Temp 97.6 F 02/09/20 10:52 Pulse 64 02/09/20 10:52 Resp 18 02/09/20 10:52 BP 126/51 L 02/09/20 10:52 Pulse Ox 96 02/09/20 10:52 Weight - Most Recent: 270 lb 6.4 oz I&O - Last 24 Hours: Intake & Output 02/08/20 02/09/20 02/09/20 22:59 06:59 14:59 Intake Total 150 3565 Output Total 400 1125 1000 Balance -250 2440 -1000 Lab Results Last 24 Hours: Laboratory Results - last 24 hr 02/08/20 02/08/20 02/08/20 Range/Units 17:40 17:40 17:44 WBC 5.8 (4.5-11.0) K/uL RBC 4.41 (4.30-5.90) M/uL Hgb 12.8 (12.0-15.0) g/dL Hct 39.5 L (40.0-54.0) % MCV 90 (80-98) fL MCH 29 (27-31) pg MCHC 32 (32-36) % Plt Count 215 (150-400) K/uL Neut % (Auto) 79 H (36-66) % Lymph % (Auto) 8 L (24-44) % [place] % (Auto) 12 H (2-6) % Eos % (Auto) 1 L (2-4) % Baso % (Auto) 0 (0-1) % Sodium (140-148) mmol/L Potassium (3.6-5.2) mmol/L Chloride (100-108) mmol/L Carbon Dioxide (21-32) mmol/L Anion Gap (5.0-14.0) mmol/L BUN (7-18) mg/dL Creatinine (0.8-1.3) mg/dL Est Cr Clr Drug Dosing mL/min Estimated GFR (MDRD) (>60) Glucose (74-106) mg/dL Lactic Acid 1.4 (0.4-2.0) mmol/L Calcium (8.5-10.1) mg/dL Total Bilirubin (0.2-1.0) mg/dL AST (15-37) U/L ALT (12-78) U/L Alkaline Phosphatase (46-116) U/L Total Protein (6.4-8.2) g/dL Albumin (3.4-5.0) g/dL Globulin (2.3-3.5) g/dL Albumin/Globulin Ratio (1.2-2.2) Urine Color Yellow (YELLOW) Urine Appearance Slightly cloudy A (CLEAR) Urine pH 6.0 (5.0-8.0) Ur Specific [place] 1.025 (1.008-1.030) Urine Protein Negative (NEGATIVE) mg/dL Urine Glucose (UA) Negative (NEGATIVE) mg/dL Urine Ketones Negative (NEGATIVE) mg/dL Urine Occult Blood Small H (NEGATIVE) Urine Nitrite Negative (NEGATIVE) Urine Bilirubin Negative (NEGATIVE) Urine Urobilinogen 0.2 (0.2-1.0) EU/dL Ur Leukocyte Esterase Small H (NEGATIVE) Urine RBC 0-5 (0-5) Urine WBC 20-30 H (0-5) Ur Epithelial Cells Few Amorphous Sediment Not seen Urine Bacteria Moderate Urine Mucus Moderate 02/08/20 02/09/20 02/09/20 Range/Units 17:58 05:15 05:15 WBC 4.7 (4.5-11.0) K/uL RBC 4.38 (4.30-5.90) M/uL Hgb 12.7 (12.0-15.0) g/dL Hct 39.4 L (40.0-54.0) % MCV 90 (80-98) fL MCH 29 (27-31) pg MCHC 32 (32-36) % Plt Count 210 (150-400) K/uL Neut % (Auto) 75 H (36-66) % Lymph % (Auto) 11 L (24-44) % [place] % (Auto) 13 H (2-6) % Eos % (Auto) 0 L (2-4) % Baso % (Auto) 0 (0-1) % Sodium 134 L 138 L (140-148) mmol/L Potassium 4.1 4.0 (3.6-5.2) mmol/L Chloride 102 105 (100-108) mmol/L Carbon Dioxide 20 L 22 (21-32) mmol/L Anion Gap 16.1 H 15.0 H (5.0-14.0) mmol/L BUN 12 9 (7-18) mg/dL Creatinine 1.1 1.2 (0.8-1.3) mg/dL Est Cr Clr Drug Dosing 65.44 59.99 mL/min Estimated GFR (MDRD) > 60 > 60 (>60) Glucose 106 120 H (74-106) mg/dL Lactic Acid (0.4-2.0) mmol/L Calcium 8.8 8.4 L (8.5-10.1) mg/dL Total Bilirubin 0.4 D 0.4 (0.2-1.0) mg/dL AST 38 H 83 H D (15-37) U/L ALT 59 107 H (12-78) U/L Alkaline Phosphatase 105 124 H (46-116) U/L Total Protein 7.0 6.8 (6.4-8.2) g/dL Albumin 2.8 L 2.7 L (3.4-5.0) g/dL Globulin 4.2 H 4.1 H (2.3-3.5) g/dL Albumin/Globulin Ratio 0.7 L 0.7 L (1.2-2.2) Urine Color (YELLOW) Urine Appearance (CLEAR) Urine pH (5.0-8.0) Ur Specific [place] (1.008-1.030) Urine Protein (NEGATIVE) mg/dL Urine Glucose (UA) (NEGATIVE) mg/dL Urine Ketones (NEGATIVE) mg/dL Urine Occult Blood (NEGATIVE) Urine Nitrite (NEGATIVE) Urine Bilirubin (NEGATIVE) Urine Urobilinogen (0.2-1.0) EU/dL Ur Leukocyte Esterase (NEGATIVE) Urine RBC (0-5) Urine WBC (0-5) Ur Epithelial Cells Amorphous Sediment Urine Bacteria Urine Mucus Med Orders - Current: Current Medications Acetaminophen (Tylenol) 650 mg PO Q4H PRN PRN Reason: Pain (Mild 1-3)/fever Last Admin: 02/09/20 05:24 Dose: 650 mg Documented by: Aspirin (Halfprin) 162 mg PO BID [facility] Last Admin: 02/09/20 09:39 Dose: 162 mg Documented by: Atenolol (Tenormin) 25 mg PO BID [facility] Last Admin: 02/09/20 09:38 Dose: 25 mg Documented by: Bupropion HCl (Wellbutrin Xl) 300 mg PO DAILY [facility] Last Admin: 02/09/20 09:39 Dose: 300 mg Documented by: Enoxaparin Sodium (Lovenox) 40 mg SUBCUT QPM [facility] Sodium Chloride (Normal Saline) 1,000 mls @ 125 mls/hr IV ASDIRECTED [facility] Last Admin: 02/09/20 03:05 Dose: 125 mls/hr Documented by: Levofloxacin/Dextrose 750 mg/ (Premix) 150 mls @ 100 mls/hr IV Q24H [facility] Stop: 02/15/20 19:31 Last Admin: 02/08/20 19:56 Dose: 100 mls/hr Documented by: Ibuprofen (Motrin) 600 mg PO Q8H PRN PRN Reason: Pain/Fever Last Admin: 02/09/20 03:02 Dose: 600 mg Documented by: Ondansetron HCl (Zofran Odt) 4 mg PO Q6H PRN PRN Reason: Nausea able to take PO Last Admin: 02/09/20 02:28 Dose: 4 mg Documented by: Oxycodone/Acetaminophen (Percocet 325-5 Mg) 1 tab PO Q4H PRN PRN Reason: Pain (moderate 4-6) Pramipexole Dihydrochloride (Mirapex) 0.125 mg PO BEDTIME [facility] Last Admin: 02/08/20 21:31 Dose: 0.125 mg Documented by: Tamsulosin HCl (Flomax) 0.8 mg PO DAILY [facility] Last Admin: 02/09/20 09:38 Dose: 0.8 mg Documented by: Venlafaxine HCl (Effexor Xr) 150 mg PO DAILY [facility] Last Admin: 02/09/20 09:39 Dose: 150 mg Documented by: Discontinued Medications Aspirin (Aspirin) 13,122 mg PO BID [facility] Aspirin (Aspirin) 162 mg PO BID [facility] Enoxaparin Sodium (Lovenox) 40 mg SUBCUT DAILY [facility] Last Admin: 02/08/20 20:01 Dose: 40 mg Documented by: Sodium Chloride (Normal Saline) 1,000 mls @ 999 mls/hr IV ASDIRECTED [facility] Last Admin: 02/08/20 18:00 Dose: 999 mls/hr Documented by: - Exam Quality Assessment: DVT Prophylaxis. No: Supplemental Oxygen, Central Line/PICC, Urine Catheter General: Alert, Oriented, Cooperative, No Acute Distress Lungs: Clear to Auscultation, Normal Respiratory Effort Cardiovascular: Regular Rate, Regular Rhythm, No Murmurs GI/Abdominal Exam: Normal Bowel Sounds, Soft, Non-Tender, No Organomegaly, No Distention, No Abnormal Bruit, No Mass Sepsis Event Note - Evaluation Sepsis Screening Result: No Definite Risk - Focused Exam Vital Signs: Vital Signs Temp Temp Pulse Pulse Resp BP BP 02/09/20 10:52 97.6 F 64 18 126/51 L 02/09/20 09:38 51 L 117/60 02/09/20 08:21 51 L 16 117/60 02/09/20 07:20 02/09/20 05:24 99.7 F 02/09/20 05:07 99.4 F 68 18 144/60 H 02/09/20 03:10 39.1 F L 72 16 144/65 H 02/09/20 03:02 39.1 F L 02/09/20 02:32 102.4 F H 77 16 02/09/20 01:42 39.1 F L 02/09/20 01:16 100.9 F H 77 20 179/83 H 02/09/20 01:12 100.9 F H Pulse Ox 02/09/20 10:52 96 02/09/20 09:38 02/09/20 08:21 97 02/09/20 07:20 91 L 02/09/20 05:24 02/09/20 05:07 95 02/09/20 03:10 92 L 02/09/20 03:02 02/09/20 02:32 94 L 02/09/20 01:42 02/09/20 01:16 97 02/09/20 01:12 - Problem List Review Problem List Initiated/Reviewed/Updated: Yes - My Orders Last 24 Hours: My Active Orders 02/08/20 Dinner Regular Diet [DIET] 02/08/20 19:14 Patient Status [ADT] Routine Oxygen Therapy [RC] PRN Up to Chair [RC] QID VTE/DVT Education [RC] Per Unit Routine Vital Signs [RC] Q4H Acetaminophen [TylenoL] 650 mg PO Q4H PRN Acetaminophen/oxyCODONE [Percocet 325-5 MG] 1 tab PO Q4H PRN Ondansetron [Zofran ODT] 4 mg PO Q6H PRN Resuscitation Status Routine 02/08/20 19:15 Sodium Chloride 0.9% [Normal Saline] 1,000 ml IV ASDIRECTED 02/08/20 19:16 Notify Provider Vital Signs [RC] ASDIRECTED Pulse Oximetry [RC] PRN 02/08/20 19:30 Levofloxacin/Dextrose 5%-Water [Levaquin in D5W 750 MG/150 ML] 750 mg Premix Bag 1 bag IV Q24H 02/08/20 21:00 Pramipexole [Mirapex] 0.125 mg PO BEDTIME atenoloL [Tenormin] 25 mg PO BID 02/08/20 21:30 Aspirin [Halfprin] 162 mg PO BID 02/09/20 09:00 Tamsulosin [Flomax] 0.8 mg PO DAILY Venlafaxine [Effexor XR] 150 mg PO DAILY buPROPion [Wellbutrin XL] 300 mg PO DAILY 02/09/20 17:00 Enoxaparin [Lovenox] 40 mg SUBCUT QPM 02/10/20 05:00 CBC WITH AUTO DIFF [HEME] DAILY COMPREHENSIVE METABOLIC PN,CMP [CHEM] DAILY 02/11/20 05:00 CBC WITH AUTO DIFF [HEME] DAILY COMPREHENSIVE METABOLIC PN,CMP [CHEM] DAILY 02/12/20 05:00 CBC WITH AUTO DIFF [HEME] DAILY COMPREHENSIVE METABOLIC PN,CMP [CHEM] DAILY - Plan Plan:: Assessment and Plan: 1. HEENT No active issues other than mild rhinitis - Observation only 2. Cardiopulmonary No active issues at this time 3. Gastrointestinal No active issues at this time 4. ID/Genitourinary Patient does appear to have fever but no hemodynamic instability or other SIRS criteria of sepsis. WBC is unremarkable. CT showed evidence of pericystic stranding and some signs of prostatitis. No hydronephrosis or stone noted. UCx shows evidence of pansensitive E coli. 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 5. F/E/N No issues 6. Renal No signs of renal insufficiency at this time. - Daily labs Disposition: Anticipate D/C to home in 1-2 days. Can transfer out of ICU. Can D/C once afebrile x 24 gavino Giordano M.D. 09 February 2020
[2020-02-09] MEDS ORDERED: Enoxaparin 40 MG/0.4 ML Syringe SUBCUT SCH (17:00)
[2020-02-09] MEDS: Levofloxacin/Dextrose 5%-Water 750 MG in Premix Bag 1 BAG IV SCH (18:55)
[2020-02-09] MEDS: Pramipexole 0.25 MG Tab PO SCH (21:09)
[2020-02-09] MEDS: Lactobacillus Rhamnosus GG (Probiotic) Cap PO SCH (21:13)
[2020-02-10] MEDS: Acetaminophen 325 MG Tab PO PRN ×2 (01:11→05:25)
[2020-02-10] MEDS: Sodium Chloride 0.9% 1,000 ML IV SCH (02:54)
[2020-02-10] MEDS: Ibuprofen 600 MG Tab PO PRN (05:25)
[2020-02-10] MEDS: Atenolol 25 MG Tab PO SCH (09:16)
[2020-02-10] MEDS: buPROPion 150 MG Tab.ER PO SCH (09:16)
[2020-02-10] MEDS: Lactobacillus Rhamnosus GG (Probiotic) Cap PO SCH (09:16)
[2020-02-10] MEDS: Tamsulosin 0.4 MG Cap.ER PO SCH (09:17)
[2020-02-10] MEDS: Venlafaxine 75 MG Cap.ER PO SCH (09:17)
[2020-02-10] MEDS: Aspirin 81 MG Tab.EC PO SCH (09:17)
--- NOTE | 2020-02-10 10:45 | PCM.DCSUM1 ---
Discharge Summary - Hospital Course Free Text/Narrative:: Mr. Bennie Harris was admitted to [facility] on 08 February 2020 for management of suspected sepsis d/t urinary source. The patient had initially been seen in the ED the day prior with fevers, chills, and was thought to have COVID. He had tested negative and was noted to have UTI and discharged to home with PO ciprofloxacin. Despite the appropriateness of this regimen, the patient continued to have escalating fevers and pain in the R flank and RLQ c/w cystitis. The patient noted some increase frequency and urgency, but no outright dysuria. The patient did have a CT which identified the radiographic findings of cystitis with increased inflammation and irritation of the bladder. The patient was subjected to BCx and UCx. The patient had an UCx that grew out E. coli with vo-sensitivity to all atbx. The patient was converted to po levaquin 750 mg po q 24 on 10 February 2020. He will continue this for an additional 5 days to complete a 7 day course. The patient was noted to have mild elevations in LFT's during the admission whcih may have been related to some transient low pressures noted at time of admission vs the possibility of a recurrent autoimmune hepatitis (had prior reaction to cephalosporins in the past). He is discharged in stable condition with plans to f/u with PCP in 1 day for repeat transaminases and hospital follow-up. Diagnosis: Stroke: No - Discharge Data Discharge Date: 02/10/20 Discharge Disposition: Home, Self-Care 01 Condition: Good - Referral to Home Health Primary Care Physician: Naren Prabhakar NP - Patient Instructions Diet: Usual Diet as Tolerated Activity: As Tolerated Driving: May Drive Today Showering/Bathing: May Shower - Discharge Plan *PRESCRIPTION DRUG MONITORING PROGRAM REVIEWED*: No *COPY OF PRESCRIPTION DRUG MONITORING REPORT IN PATIENT LALA: No Prescriptions/Med Rec: levoFLOXacin [Levaquin] 750 mg PO DAILY 5 Days tab Ondansetron [Zofran ODT] 4 mg PO Q6H PRN 7 Days #20 tab.dis PRN Reason: Nausea able to take PO Home Medications: Home Meds Aspirin 162 mg PO BID 02/07/20 [History] Pramipexole [Mirapex] 0.125 mg PO BEDTIME 02/07/20 [History] Tamsulosin [Flomax] 0.8 mg PO DAILY 02/07/20 [History] Venlafaxine HCl [Venlafaxine ER] 150 mg PO DAILY 02/07/20 [History] atenoloL [Atenolol] 25 mg PO BID 02/07/20 [History] buPROPion HCL [buPROPion HCl ER] 300 mg PO DAILY 02/07/20 [History] Ibuprofen [Motrin] 600 mg PO Q8H PRN tablet 02/10/20 [Rx] Lactobacillus Rhamnosus GG [Culturelle] 1 cap PO BID cap 02/10/20 [Rx] Ondansetron [Zofran ODT] 4 mg PO Q6H PRN 7 Days #20 tab.dis 02/10/20 [Rx] levoFLOXacin [Levaquin] 750 mg PO DAILY 5 Days tab 02/10/20 [Rx] Forms: ED Department Discharge Referrals: Naren Prabhakar, [employer] [Primary Care Provider] - 02/15/20 3:20 pm (Please arrive 15 minutes early to register for your appointment.) - Discharge Summary/Plan Comment DC Time >30 min.: Yes - Patient Data Vitals - Most Recent: Last Vital Signs Temp 97.8 F 02/10/20 07:24 Pulse 69 02/10/20 09:16 Resp 16 02/10/20 07:24 BP 131/61 02/10/20 09:16 Pulse Ox 90 L 02/10/20 08:06 Weight - Most Recent: 270 lb 6.386 oz I&O - Last 24 hours: Intake & Output 02/09/20 02/10/20 02/10/20 22:59 06:59 14:59 Intake Total 3760 2608 1117 Output Total 600 700 800 Balance 3160 1908 317 Lab Results - Last 24 hrs: Laboratory Results - last 24 hr 02/10/20 02/10/20 Range/Units 04:10 04:10 WBC 3.6 L (4.5-11.0) K/uL RBC 4.03 L (4.30-5.90) M/uL Hgb 12.0 (12.0-15.0) g/dL Hct 36.3 L (40.0-54.0) % MCV 90 (80-98) fL MCH 30 (27-31) pg MCHC 33 (32-36) % Plt Count 172 (150-400) K/uL Neut % (Auto) 51 (36-66) % Lymph % (Auto) 23 L (24-44) % [place] % (Auto) 23 H (2-6) % Eos % (Auto) 3 (2-4) % Baso % (Auto) 1 (0-1) % Sodium 140 (140-148) mmol/L Potassium 4.1 (3.6-5.2) mmol/L Chloride 106 (100-108) mmol/L Carbon Dioxide 25 (21-32) mmol/L Anion Gap 8.9 (5.0-14.0) mmol/L BUN 7 (7-18) mg/dL Creatinine 1.0 (0.8-1.3) mg/dL Est Cr Clr Drug Dosing 72.16 mL/min Estimated GFR (MDRD) > 60 (>60) Glucose 101 (74-106) mg/dL Calcium 8.3 L (8.5-10.1) mg/dL Total Bilirubin 0.4 (0.2-1.0) mg/dL AST 70 H (15-37) U/L ALT 121 H (12-78) U/L Alkaline Phosphatase 111 (46-116) U/L Total Protein 6.2 L (6.4-8.2) g/dL Albumin 2.4 L (3.4-5.0) g/dL Globulin 3.8 H (2.3-3.5) g/dL Albumin/Globulin Ratio 0.6 L (1.2-2.2) CORDELL Results - Last 24 hrs: Microbiology 02/08/20 18:20 Aerobic Blood Culture - Preliminary Blood - Arm, Left NO GROWTH AFTER 1 DAY Anaerobic Blood Culture - Preliminary NO GROWTH AFTER 1 DAY 02/08/20 18:10 Aerobic Blood Culture - Preliminary Blood - Arm, Left NO GROWTH AFTER 1 DAY Anaerobic Blood Culture - Preliminary NO GROWTH AFTER 1 DAY Med Orders - Current: Current Medications Aspirin (Halfprin) 162 mg PO BID [facility] Last Admin: 02/10/20 09:17 Dose: 162 mg Documented by: Atenolol (Tenormin) 25 mg PO BID [facility] Last Admin: 02/10/20 09:16 Dose: 25 mg Documented by: Bupropion HCl (Wellbutrin Xl) 300 mg PO DAILY [facility] Last Admin: 02/10/20 09:16 Dose: 300 mg Documented by: Enoxaparin Sodium (Lovenox) 40 mg SUBCUT QPM [facility] Last Admin: 02/09/20 16:57 Dose: 40 mg Documented by: Levofloxacin/Dextrose 750 mg/ (Premix) 150 mls @ 100 mls/hr IV Q24H [facility] Stop: 02/15/20 19:31 Last Admin: 02/09/20 18:55 Dose: 100 mls/hr Documented by: Ibuprofen (Motrin) 600 mg PO Q8H PRN PRN Reason: Pain/Fever Last Admin: 02/10/20 05:25 Dose: 600 mg Documented by: Lactobacillus Rhamnosus (Culturelle) 1 cap PO BID [facility] Last Admin: 02/10/20 09:16 Dose: 1 cap Documented by: Ondansetron HCl (Zofran Odt) 4 mg PO Q6H PRN PRN Reason: Nausea able to take PO Last Admin: 02/09/20 02:28 Dose: 4 mg Documented by: Oxycodone/Acetaminophen (Percocet 325-5 Mg) 1 tab PO Q4H PRN PRN Reason: Pain (moderate 4-6) Pramipexole Dihydrochloride (Mirapex) 0.125 mg PO BEDTIME [facility] Last Admin: 02/09/20 21:09 Dose: 0.125 mg Documented by: Tamsulosin HCl (Flomax) 0.8 mg PO DAILY [facility] Last Admin: 02/10/20 09:17 Dose: 0.8 mg Documented by: Venlafaxine HCl (Effexor Xr) 150 mg PO DAILY [facility] Last Admin: 02/10/20 09:17 Dose: 150 mg Documented by: Discontinued Medications Acetaminophen (Tylenol) 650 mg PO Q4H PRN PRN Reason: Pain (Mild 1-3)/fever Last Admin: 02/10/20 05:25 Dose: 650 mg Documented by: Aspirin (Aspirin) 13,122 mg PO BID [facility] Last Admin: 02/09/20 15:53 Dose: Not Given Documented by: Aspirin (Aspirin) 162 mg PO BID [facility] Enoxaparin Sodium (Lovenox) 40 mg SUBCUT DAILY [facility] Last Admin: 02/08/20 20:01 Dose: 40 mg Documented by: Sodium Chloride (Normal Saline) 1,000 mls @ 999 mls/hr IV ASDIRECTED [facility] Last Admin: 02/08/20 18:00 Dose: 999 mls/hr Documented by: Sodium Chloride (Normal Saline) 1,000 mls @ 125 mls/hr IV ASDIRECTED [facility] Last Admin: 02/10/20 02:54 Dose: 125 mls/hr Documented by:
== END 2020-02-10 12:20 | disposition home or self-care (01) | DRG 872 ==
LOC: JP.ED 17:24 → JP.ICU 19:14 → JP.MS 02-09 18:45
PROVIDERS: ADMIT Orthopaedic Surgery; ATTEND Orthopaedic Surgery
DX: A41.51 Sepsis due to Escherichia coli [E. coli] (principal); N30.00 Acute cystitis without hematuria; K75.4 Autoimmune hepatitis; G47.30 Sleep apnea, unspecified; F32.9 Major depressive disorder, single episode, unspecified; Z88.0 Allergy status to penicillin; Z88.1 Allergy status to other antibiotic agents; Z79.82 Long term (current) use of aspirin; Z79.899 Other long term (current) drug therapy; Z90.49 Acquired absence of other specified parts of digestive tract
CPT/HCPCS: 36415; 74176; 80053; 81001; 83605; 85025; 87040; 94762; A9270-GY; J1650; J1956; J7030